=== PATIENT | male | born 1930 | race Caucasian/White ===

== ENCOUNTER 2019-07-03 11:27 | Inpatient (IN) | payer MEDICARE, BC ==
[~2019-07-03] VITALS: Ht 182.9 cm; Wt 78.0 kg
--- NOTE | 2019-07-03 11:40 | NUR ---
PT DOES NOT REMEMBER HIS HOME MEDICATIONS. PT's IS GOING TO BRING HIS MED LIST.
[2019-07-03] MEDS ORDERED: IV NORMAL SALINE 500 ML BAG IV ONE (11:45)
--- NOTE | 2019-07-03 11:45 | NUR ---
PATIENT SEEN BY ER PHYSICIAN. ORDERS IN PLACE
[2019-07-03 12:03] LABS: BASOPHILS % (AUTO) 0.2 % (0.0-2.0); EOSINOPHILS % (AUTO) 0.2 % (0.0-7.0); HEMATOCRIT 37.7 % (36.7-47.1); HEMOGLOBIN 12.3 g/dL (12.5-16.3); LYMPHOCYTES # (AUTO) 0.7 K/uL (20.0-40.0); MEAN CORPUSCULAR HGB CONC 33 g/dL (32.5-36.3); MEAN CORPUSCULAR VOLUME 88.9 fL (73.0-96.2); MONOCYTES # (AUTO) 0.7 K/uL (2.0-10.0); MONOCYTES % (AUTO) 4.1 % (0.0-11.0); NEUTROPHILS # (AUTO) 15.5 K/uL (1.8-8.9); NEUTROPHILS % (AUTO) 91.5 % (38.5-71.5); PLATELET COUNT (AUTO) 192 K/uL (152-348); RED BLOOD CELL COUNT(AUTO) 4.25 MIL/uL (4.06-5.63)
--- NOTE | 2019-07-03 12:08 | NUR ---
PATIENT IV INSERTED IN THE FIELD BY PARAMEDICS RIGHT FOREARM AND IS RUNNING 500ML BOLUS
--- NOTE | 2019-07-03 12:09 | NUR ---
PATIENT IS ABLE TO USE URINAL
[2019-07-03 12:14] LABS: CARBON DIOXIDE 30 mmol/L (21-32); CHLORIDE 104 mmol/L (98-107); CREATININE 1.2 mg/dL (0.6-1.3); GLUCOSE 104 mg/dL (74-106); POTASSIUM 4.8 mmol/L (3.5-5.1); UREA NITROGEN, BLOOD 23 mg/dL (7-18)
[2019-07-03 12:20] LABS: ALANINE AMINOTRANSFERASE 17 U/L (16-63); ALKALINE PHOSPHATASE 89 U/L (50-136); ASPARTATE AMINOTRANSFERASE 19 U/L (15-37); BILIRUBIN,DIRECT 0.2 mg/dL (0.0-0.2); BILIRUBIN,TOTAL 1.2 mg/dL (0.2-1.0); TOTAL PROTEIN, SERUM 7.5 g/dL (6.4-8.2)
[2019-07-03 12:43] LABS: *BILIRUBIN,URIN NEGATIVE (NEGATIVE); *BLOOD, URINE NEGATIVE (NEGATIVE); *CLARITY,URINE CLEAR (CLEAR); *COLOR,URINE YELLOW (YELLOW); *KETONES,URINE NEGATIVE (NEGATIVE); *UROBILINOGEN,URINE 0.2 E.U./dl (NORMAL); LEUKOCYTE ESTERASE ,URINE NEGATIVE (NEGATIVE); NITRITE, URINE NEGATIVE (NEGATIVE); UGLUCOSE NEGATIVE (NEGATIVE)
[2019-07-03] MEDS ORDERED: LEVOFLOXACIN 750MG/D5W 150 ML IV ONE ×2 (13:15→13:35)
[2019-07-03] MEDS ORDERED: PIPERACILLIN SODIUM/TAZOBACTAM 3.375 G in IV DEXTROSE 5% 50 ML IV ONE (13:15)
[2019-07-03] MEDS ORDERED: ACETAMINOPHEN ES 500 MG TABLET PO ONE (13:15)
[2019-07-03] MEDS ORDERED: ACETAMINOPHEN ES 500 MG TABLET ONE (13:35)
[2019-07-03] MEDS ORDERED: PIPERACILLIN/TAZOBACTAM/D5W 50 ML IV ONE (13:35)
--- NOTE | 2019-07-03 13:45 | NUR ---
PATIENT LEFT FOR CT OF THE HEAD AND WILL CALL TO GIVE REPORT. PATIENT WILL BE ADMITTED TO DR STUBBS.
--- NOTE | 2019-07-03 13:50 | NUR ---
WAITING TO GIVE REPORT. PATIENT WILL BE GOING TO ROOM 308, RECIEVING EMERALD PINEDA.
[2019-07-03 15:30] VITALS: BP 93/53
[2019-07-03] MEDS ORDERED: ACETAMINOPHEN 325 MG TABLET PO PRN (17:00)
[2019-07-03] MEDS ORDERED: ONDANSETRON 4 MG/2 ML VIAL IV PRN (17:00)
[2019-07-03] MEDS ORDERED: DIAZEPAM 5 MG TABLET PO PRN (17:00)
[2019-07-03] MEDS: DOCUSATE SODIUM 100 MG CAPSULE PO SCH (17:00)
[2019-07-03] MEDS ORDERED: MORPHINE SULFATE 2 MG/1 ML DISP.SYRIN IV PRN (17:00)
--- NOTE | 2019-07-03 18:38 | NUR ---
Patient received in stable condition with no signs of distress; patient with stable vital signs ; patient anox4 ; Report given to oncoming nurse.
[2019-07-03 20:00] VITALS: BP 95/47
[2019-07-03] MEDS: CEFTRIAXONE 1 G in IV DEXTROSE 5% 50 ML IV SCH (21:30)
[2019-07-04] VITALS: BP 110/64
[2019-07-04 04:00] VITALS: BP 108/64
[2019-07-04] MEDS: PANTOPRAZOLE SODIUM 40 MG TABLET.DR PO SCH (06:09)
[2019-07-04 07:04] LABS: BASOPHILS % (AUTO) 0.1 % (0.0-2.0); EOSINOPHILS # (AUTO) 0.1 K/uL (0.0-0.7); HEMATOCRIT 32.8 % (36.7-47.1); HEMOGLOBIN 10.8 g/dL (12.5-16.3); LYMPHOCYTES # (AUTO) 0.5 K/uL (20.0-40.0); LYMPHOCYTES % (AUTO) 8.5 % (20.5-51.5); MEAN CORPUSCULAR HEMOGLOBIN 29.2 uug (23.8-33.4); MEAN CORPUSCULAR HGB CONC 33 g/dL (32.5-36.3); MEAN CORPUSCULAR VOLUME 88.8 fL (73.0-96.2); MONOCYTES # (AUTO) 0.6 K/uL (2.0-10.0); MONOCYTES % (AUTO) 9.2 % (0.0-11.0); NEUTROPHILS % (AUTO) 81.2 % (38.5-71.5); PLATELET COUNT (AUTO) 157 K/uL (152-348); WHITE BLOOD COUNT (AUTO) 6.2 K/uL (3.6-10.2)
[2019-07-04 07:30] LABS: THYROID STIMULATING HORMONE 0.245 mIU/mL (0.358-3.740)
[2019-07-04 07:35] LABS: BILIRUBIN,TOTAL 1.2 mg/dL (0.2-1.0); CREATININE 1.2 mg/dL (0.6-1.3); MAGNESIUM 2.2 mg/dL (1.8-2.4); PHOSPHOROUS 3.4 mg/dL (2.5-4.9); POTASSIUM 4.3 mmol/L (3.5-5.1); TOTAL PROTEIN, SERUM 6.4 g/dL (6.4-8.2)
[2019-07-04 07:56] LABS: DIGOXIN 0.4 ng/mL (0.9-2.0)
[2019-07-04] MEDS: DOCUSATE SODIUM 100 MG CAPSULE PO SCH ×2 (09:00→17:00)
[2019-07-04] MEDS ORDERED: DIGOXIN 125 MCG TABLET PO SCH (09:00)
[2019-07-04] MEDS ORDERED: Medication Not On Formulary EA (Cholecalciferol (Vitamin D3) (Vitamin D3) 1 CAP) PO SCH (09:00)
[2019-07-04] MEDS: ASPIRIN EC 81 MG TABLET.DR PO SCH (10:12)
[2019-07-04] MEDS: CHOLECALCIFEROL 400 UNITS TABLET PO SCH (10:12)
[2019-07-04] MEDS: DIGOXIN 125 MCG TABLET PO SCH (10:13)
[2019-07-04] MEDS: CELECOXIB 200 MG CAPSULE PO SCH (10:13)
[2019-07-04 11:30] VITALS: BP 117/57
[2019-07-04] MEDS: AZITHROMYCIN IV 500 MG in IV DEXTROSE 5% 250 ML IV SCH (14:56)
[2019-07-04 15:15] VITALS: BP 115/59
--- NOTE | 2019-07-04 18:08 | NUR ---
Patient AAOx3; forgetful at times. IV on R FA intact and patent. Denies pain. No s/s of acute distress. Verbalized feeling dizzy when propped up. Orthostatics initiated. Safety measures implemented and effective. Receiving 2L o2 via NC. All needs attended. Will endorse care accordingly. Addendum: 07/04/19 at 1826 by TOM BURGOS RN SR on monitor with HR:[id number]
[2019-07-04 19:58] VITALS: BP 111/62
[2019-07-04] MEDS: CEFTRIAXONE 1 G in IV DEXTROSE 5% 50 ML IV SCH (20:19)
[2019-07-05 00:53] VITALS: BP 120/63
[2019-07-05 04:56] VITALS: BP 126/64
[2019-07-05] MEDS: PANTOPRAZOLE SODIUM 40 MG TABLET.DR PO SCH (06:35)
--- NOTE | 2019-07-05 06:48 | NUR ---
Patient slept intermittently. Noted A&Ox2-3, forgetful at times. No SOB noted. IV site on RFA intact and patent. SR on Tele monitor. All needs attended. Will endorse accordingly
[2019-07-05 07:00] LABS: BASOPHILS % (AUTO) 0.4 % (0.0-2.0); EOSINOPHILS # (AUTO) 0.1 K/uL (0.0-0.7); EOSINOPHILS % (AUTO) 1.2 % (0.0-7.0); HEMATOCRIT 34.3 % (36.7-47.1); HEMOGLOBIN 11.6 g/dL (12.5-16.3); LYMPHOCYTES # (AUTO) 0.6 K/uL (20.0-40.0); LYMPHOCYTES % (AUTO) 11.4 % (20.5-51.5); MEAN CORPUSCULAR HEMOGLOBIN 29.5 uug (23.8-33.4); MEAN CORPUSCULAR HGB CONC 34 g/dL (32.5-36.3); MEAN CORPUSCULAR VOLUME 87.6 fL (73.0-96.2); MONOCYTES # (AUTO) 0.5 K/uL (2.0-10.0); MONOCYTES % (AUTO) 10.1 % (0.0-11.0); NEUTROPHILS # (AUTO) 3.9 K/uL (1.8-8.9); NEUTROPHILS % (AUTO) 76.9 % (38.5-71.5); PLATELET COUNT (AUTO) 178 K/uL (152-348); RED BLOOD CELL COUNT(AUTO) 3.91 MIL/uL (4.06-5.63); WHITE BLOOD COUNT (AUTO) 5.1 K/uL (3.6-10.2)
[2019-07-05 07:06] LABS: CREATININE 0.9 mg/dL (0.6-1.3); MAGNESIUM 2.2 mg/dL (1.8-2.4); PHOSPHOROUS 3.2 mg/dL (2.5-4.9); POTASSIUM 3.9 mmol/L (3.5-5.1)
[2019-07-05 07:16] LABS: THYROID STIMULATING HORMONE 0.265 mIU/mL (0.358-3.740)
--- NOTE | 2019-07-05 07:20 | NUR ---
Received patient in Bed, awake and verbally responsive. No signs of distress noted. No complain of Pain or discomfort. Kept comfortable. Kept the call light within easy reach. Will continue to monitor.
[2019-07-05] MEDS: ASPIRIN EC 81 MG TABLET.DR PO SCH (08:35)
[2019-07-05] MEDS: DOCUSATE SODIUM 100 MG CAPSULE PO SCH ×2 (08:35→16:11)
[2019-07-05] MEDS: CELECOXIB 200 MG CAPSULE PO SCH (08:35)
[2019-07-05] MEDS: DIGOXIN 125 MCG TABLET PO SCH (08:36)
[2019-07-05] MEDS: CHOLECALCIFEROL 400 UNITS TABLET PO SCH (08:48)
[2019-07-05 11:10] VITALS: BP 113/59
[2019-07-05] MEDS: AZITHROMYCIN IV 500 MG in IV DEXTROSE 5% 250 ML IV SCH (13:23)
[2019-07-05] MEDS: GUAIFENESIN/DEXTROMETHORPHAN 5 ML UDC PO PRN ×2 (14:32→20:23)
[2019-07-05 15:06] VITALS: BP 114/62
--- NOTE | 2019-07-05 18:30 | NUR ---
patient in bed, awake and verbally responsive with episode of forgetfulness. No signs of distress noted. No SOB. Afebrile. No complain of Pain or discomfort. All due medications given as ordered. kept clean and comfortable. kept the call light within easy reach. Will endorse to Oncoming Nurse.
--- NOTE | 2019-07-05 20:00 | NUR ---
RECEIVED PATIENT AWAKE IN BED. ALERT TO SELF. DISORIENTED AND CONFUSED, NEEDS FREQUENT REDIRECTION. ATTEMPTING TO GET OOB. BED ALARM ON. VS WNL. H/L INTACT AND PATENT. NO RESP. DISTRESS NOTED. PATIENT DENIES PAIN. CALL LIGHT IN REACH. ALL NEEDS ATTENDED. WILL CONTINUE TO MONITOR AND ASSESS.
[2019-07-05 20:23] VITALS: BP 125/59
--- NOTE | 2019-07-05 20:30 | NUR ---
PATIENT GIVEN VALIUM 5MG PO PRN. BED ALARM ON. WILL CONTINUE TO MONITOR AND ASSESS.
[2019-07-05] MEDS: CEFTRIAXONE 1 G in IV DEXTROSE 5% 50 ML IV SCH (21:08)
--- NOTE | 2019-07-05 21:50 | NUR ---
PATIENT CONFUSED AND REPEATEDLY ATTEMPTING TO GET OOB. CALLED OUT TO DR. NICHOLS. RECEIVED ORDER FOR 1:1 SITTER. 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 SITTER PLACED AT BEDSIDE AT ORDERED.
[2019-07-06] MEDS: GUAIFENESIN/DEXTROMETHORPHAN 5 ML UDC PO PRN ×2 (02:52→09:25)
[2019-07-06] MEDS: PANTOPRAZOLE SODIUM 40 MG TABLET.DR PO SCH (06:31)
[2019-07-06 06:37] VITALS: BP 126/69
[2019-07-06] MEDS: ASPIRIN EC 81 MG TABLET.DR PO SCH (09:12)
[2019-07-06] MEDS: DOCUSATE SODIUM 100 MG CAPSULE PO SCH ×2 (09:12→17:19)
[2019-07-06] MEDS: DIGOXIN 125 MCG TABLET PO SCH (09:13)
[2019-07-06] MEDS: CELECOXIB 200 MG CAPSULE PO SCH (09:13)
[2019-07-06] MEDS: CHOLECALCIFEROL 400 UNITS TABLET PO SCH (09:18)
[2019-07-06 12:00] VITALS: BP 111/57
[2019-07-06] MEDS ORDERED: AZITHROMYCIN 250 MG TABLET PO SCH (14:00)
[2019-07-06] MEDS: AMOXICILLIN-CLAVUL 875-125MG TABLET PO SCH ×2 (14:02→20:07)
--- NOTE | 2019-07-06 18:04 | NUR ---
Patient AAOx4. Denies pain or any discomfort. Ambulatory and denies feeling dizzy when standing up. No SOB noted. IV on R FA intact and patent. Sitter at bedside for safety. All needs attended. Will endorse care accordingly.
[2019-07-06 19:30] VITALS: BP 132/75
--- NOTE | 2019-07-06 19:30 | NUR ---
patient received in bed watching tv resting comfortably. a/o x3 no s/s of acute distress and v/s within normal limits. denies pain or Shortness of breath. bed in lowest position, bed alarm on, side rails up x2, and call light within reach. will continue to monitor.
[2019-07-07 05:48] VITALS: BP 136/72
[2019-07-07 06:21] LABS: BASOPHILS % (AUTO) 0.7 % (0.0-2.0); EOSINOPHILS # (AUTO) 0.1 K/uL (0.0-0.7); EOSINOPHILS % (AUTO) 2.5 % (0.0-7.0); HEMATOCRIT 38.6 % (36.7-47.1); HEMOGLOBIN 12.8 g/dL (12.5-16.3); LYMPHOCYTES # (AUTO) 0.8 K/uL (20.0-40.0); LYMPHOCYTES % (AUTO) 16.6 % (20.5-51.5); MEAN CORPUSCULAR HEMOGLOBIN 29.4 uug (23.8-33.4); MEAN CORPUSCULAR HGB CONC 33 g/dL (32.5-36.3); MEAN CORPUSCULAR VOLUME 88.6 fL (73.0-96.2); MONOCYTES # (AUTO) 0.6 K/uL (2.0-10.0); MONOCYTES % (AUTO) 11.6 % (0.0-11.0); NEUTROPHILS # (AUTO) 3.4 K/uL (1.8-8.9); NEUTROPHILS % (AUTO) 68.6 % (38.5-71.5); PLATELET COUNT (AUTO) 201 K/uL (152-348); RED BLOOD CELL COUNT(AUTO) 4.36 MIL/uL (4.06-5.63)
[2019-07-07] MEDS: PANTOPRAZOLE SODIUM 40 MG TABLET.DR PO SCH (06:24)
[2019-07-07 06:42] LABS: BILIRUBIN,TOTAL 1.1 mg/dL (0.2-1.0); MAGNESIUM 2.2 mg/dL (1.8-2.4); PHOSPHOROUS 3.4 mg/dL (2.5-4.9); POTASSIUM 4.6 mmol/L (3.5-5.1); TOTAL PROTEIN, SERUM 7.4 g/dL (6.4-8.2)
[2019-07-07] MEDS: ASPIRIN EC 81 MG TABLET.DR PO SCH (08:47)
[2019-07-07] MEDS: DOCUSATE SODIUM 100 MG CAPSULE PO SCH (08:47)
[2019-07-07] MEDS: CELECOXIB 200 MG CAPSULE PO SCH (08:47)
[2019-07-07] MEDS: CHOLECALCIFEROL 400 UNITS TABLET PO SCH (08:47)
[2019-07-07] MEDS: AMOXICILLIN-CLAVUL 875-125MG TABLET PO SCH (08:48)
[2019-07-07] MEDS: DIGOXIN 125 MCG TABLET PO SCH (08:55)
--- NOTE | 2019-07-07 09:08 | NUR ---
CAREGIVER AT BEDSIDE, SUPPORTIVE OF PATIENT CARE . APPETITE FAIR. LIBERAL FLUID INTAKE.
--- NOTE | 2019-07-07 12:00 | NUR ---
anxious to go home, awaiting md visit
--- NOTE | 2019-07-07 14:05 | NUR ---
discharged patient with caregiver via car, left in stable condition. oob walker with minimal assist, tolerate well. aware oif home instructions and follow up.
== END 2019-07-07 14:05 | disposition home health service (06) | DRG 871 ==
LOC: ER 11:27 → TELE3 15:03 → MEDSURG3 07-05 10:14
PROVIDERS: ADMIT Internal Medicine; ATTEND Internal Medicine
DX: A41.9 Sepsis, unspecified organism (principal); J69.0 Pneumonitis due to inhalation of food and vomit; G92 Toxic encephalopathy; I50.31 Acute diastolic (congestive) heart failure; D68.59 Other primary thrombophilia; E78.5 Hyperlipidemia, unspecified; Z74.09 Other reduced mobility; G62.9 Polyneuropathy, unspecified; F51.04 Psychophysiologic insomnia; I48.0 Paroxysmal atrial fibrillation; K21.9 Gastro-esophageal reflux disease without esophagitis; M48.00 Spinal stenosis, site unspecified; M19.90 Unspecified osteoarthritis, unspecified site; Z79.82 Long term (current) use of aspirin; Z87.01 Personal history of pneumonia (recurrent); Z96.642 Presence of left artificial hip joint; Z96.653 Presence of artificial knee joint, bilateral; D64.9 Anemia, unspecified; M54.9 Dorsalgia, unspecified; I35.1 Nonrheumatic aortic (valve) insufficiency; Z79.899 Other long term (current) drug therapy
CPT/HCPCS: 36415; 70030-TC; 70450; 71045; 83605; 83735; 84100; 84443; 85025; 85730; 87040; 87086; 87400; 93005; 93307; A4663; A9150; G0378; J0456; J0696; J1956; J2543; J7040; J7060; Q0144